=== PATIENT | male | born 1945 | race Caucasian/White ===

== ENCOUNTER 2017-10-09 10:43 | Inpatient (IN) | payer MEDICARE ==
[2017-10-09] VITALS (14 sets, daily range): BP systolic 101–124; BP diastolic 50–80
[~2017-10-09] VITALS: Ht 188 cm; Wt 65.2 kg
[~2017-10-09 10:43] MED LIST: AMIO200T57 PO; ASPI-612 PO; ATOR10TA87 PO; CLOP75TA35 PO; FLAX100031 PO; LISI-222 PO; METO50TA16 PO; MULT-785 PO; OMEG1CAP13 PO; SYN0.075T PO
[2017-10-09 11:25] LABS: BASOPHILS % (AUTO) 0.2 % (0-1); EOSINOPHILS # (AUTO) 0.2 X10'3 (0-0.9); EOSINOPHILS % (AUTO) 0.9 % (0-6); HEMATOCRIT 30.2 % (42.0-52.0); HEMOGLOBIN 10.4 g/dl (14.0-17.9); LYMPHOCYTES # (AUTO) 2.2 X10'3 (1.1-4.8); LYMPHOCYTES % (AUTO) 12.4 % (21-51); MEAN CORPUSCULAR HEMOGLOBIN 32.3 PG (27.0-31.0); MEAN CORPUSCULAR HGB CONC 34.4 % (33.0-36.5); MEAN CORPUSCULAR VOLUME 93.9 FL (78-98); MEAN PLATELET VOLUME 7.8 FL (7.4-10.4); MONOCYTES # (AUTO) 1.6 X10'3 (0-0.9); MONOCYTES % (AUTO) 9.2 % (2-12); NEUTROPHILS # (AUTO) 13.7 X10'3 (1.8-7.7); NEUTROPHILS % (AUTO) 77.3 % (42-75); PLATELET COUNT 431 X10'3 (140-440); RED BLOOD COUNT 3.21 X10'6 (4.70-6.10); RED CELL DISTRIBUTION WIDTH 14.2 % (11.5-14.5); WHITE BLOOD COUNT 17.7 X10'3 (4.5-11.0)
[2017-10-09 11:36] LABS: INR 1.1 INR; PARTIAL THROMBOPLASTIN TIME 35 SECONDS (22-32); PROTHROMBIN TIME 11.1 SECONDS (9.0-12.0)
[2017-10-09 11:41] LABS: ALANINE AMINOTRANSFERASE 36 U/L (12-78); ALBUMIN 2.7 G/DL (3.4-5.0); ALBUMIN/GLOBULIN RATIO 0.5 (1.1-1.5); ALKALINE PHOSPHATASE 83 IU/L (46-116); ANION GAP 12 (8-16); ASPARTATE AMINO TRANSFERASE 17 U/L (10-37); BILIRUBIN,TOTAL 0.6 MG/DL (0.1-1.0); BLOOD UREA NITROGEN 12 MG/DL (7-18); BUN/CREATININE RATIO 11.8 (5.4-32.0); CHLORIDE 99 MMOL/L (99-107); CREATININE 1.02 MG/DL (0.60-1.10); GLUCOSE 110 MG/DL (70-104); POTASSIUM 3.8 MMOL/L (3.5-5.1); SODIUM 136 MMOL/L (135-145); TOTAL CARBON DIOXIDE 25.2 MMOL/L (24-32); TOTAL PROTEIN 8.1 G/DL (6.4-8.2); eGFR 72 ML/MIN
[2017-10-09] MEDS ORDERED: piperacillin/tazo 3.375gm/50ml 50 ML IV SCH (12:18)
[2017-10-09] MEDS ORDERED: vancomycin/NS 1 GM ADD-VANTAGE 250 ML X 1 DOSE IV ONE (12:20)
[2017-10-09] MEDS ORDERED: piperacillin/tazo 3.375gm/50ml 50 ML IV ONE ×2 (12:46→16:00)
[2017-10-09] MEDS ORDERED: ringers solution, lacted 1,000 ML IV SCH ×2 (12:52→12:55)
[2017-10-09] MEDS ORDERED: hydrALAZINE 20mg/ml inj. IV PRN (12:55)
[2017-10-09] MEDS ORDERED: labetalol 5mg/ml 20ml inj. IV PRN (12:55)
[2017-10-09] MEDS ORDERED: famotidine 20mg tablet PO ONE (12:55)
[2017-10-09] MEDS ORDERED: morphine 2 MG/ML inj. syringe IV PRN ×2 (12:55)
[2017-10-09] MEDS ORDERED: fentaNYL/PF 50MCG/1 ML 2ML syringe IV PRN ×2 (12:55)
[2017-10-09] MEDS ORDERED: ondansetron/PF 4mg/2ml inj IV PRN ×2 (12:55→14:15)
[2017-10-09] MEDS ORDERED: LISI-604 PO (13:06)
[2017-10-09] MEDS ORDERED: dexamethasone sod phosphate 4mg/ml inj. ONE (13:15)
[2017-10-09] MEDS ORDERED: fentaNYL/PF 50MCG/1 ML 2ML syringe ONE (13:15)
[2017-10-09] MEDS ORDERED: LIDOcaine 2% (20mg/ml) 5ml vial ONE (13:15)
[2017-10-09] MEDS ORDERED: midazolam 2 mg/2 ml injection ONE (13:15)
[2017-10-09] MEDS ORDERED: ceFAZolin 1000mg inj ONE (13:16)
[2017-10-09] MEDS ORDERED: ondansetron/PF 4mg/2ml inj ONE (13:16)
[2017-10-09] MEDS ORDERED: propofol inj 20 ML IV ONE (13:16)
[2017-10-09] MEDS ORDERED: ePHEDrine 50MG/ML INJ. ONE (13:40)
[2017-10-09] MEDS ORDERED: naloxone 0.4 mg/ml inj IV PRN (14:15)
[2017-10-09] MEDS ORDERED: HYDROcodone/acetaminophen 5mg/325mg tablet PO PRN (14:15)
[2017-10-09] MEDS ORDERED: CADD PCA waste documentation MC PRN (14:15)
[2017-10-09] MEDS: HYDROmorphone/NS 1 mg/ml CADD 50 ML IV SCH ×6 (15:02→23:00)
[2017-10-09] MEDS: aspirin 81mg tablet.DR PO SCH (20:00)
[2017-10-09] MEDS: metoprolol tartrate 50mg tablet PO SCH (20:50)
[2017-10-09] MEDS ORDERED: atorvastatin 10mg tablet PO SCH (21:00)
[2017-10-10] VITALS: BP 98/68
[2017-10-10] MEDS: HYDROmorphone/NS 1 mg/ml CADD 50 ML IV SCH ×8 (01:00→14:56)
[2017-10-10] MEDS: vancomycin/NS 1 GM ADD-VANTAGE 250 ML IV SCH ×2 (02:08→07:43)
[2017-10-10 04:00] VITALS: BP 114/68
[2017-10-10 05:31] LABS: BASOPHILS % (AUTO) 0.1 % (0-1); EOSINOPHILS # (AUTO) 0.3 X10'3 (0-0.9); HEMATOCRIT 26.2 % (42.0-52.0); HEMOGLOBIN 8.9 g/dl (14.0-17.9); LYMPHOCYTES # (AUTO) 1.3 X10'3 (1.1-4.8); LYMPHOCYTES % (AUTO) 9.5 % (21-51); MEAN CORPUSCULAR HEMOGLOBIN 31.8 PG (27.0-31.0); MEAN CORPUSCULAR VOLUME 93.4 FL (78-98); MEAN PLATELET VOLUME 7.9 FL (7.4-10.4); MONOCYTES # (AUTO) 0.9 X10'3 (0-0.9); MONOCYTES % (AUTO) 6.3 % (2-12); NEUTROPHILS # (AUTO) 11.6 X10'3 (1.8-7.7); NEUTROPHILS % (AUTO) 82.1 % (42-75); PLATELET COUNT 395 X10'3 (140-440); RED BLOOD COUNT 2.81 X10'6 (4.70-6.10); RED CELL DISTRIBUTION WIDTH 13.7 % (11.5-14.5); WHITE BLOOD COUNT 14.1 X10'3 (4.5-11.0)
[2017-10-10 06:05] LABS: ALANINE AMINOTRANSFERASE 29 U/L (12-78); ALBUMIN 2.1 G/DL (3.4-5.0); ALBUMIN/GLOBULIN RATIO 0.5 (1.1-1.5); ALKALINE PHOSPHATASE 71 IU/L (46-116); ANION GAP 12 (8-16); ASPARTATE AMINO TRANSFERASE 15 U/L (10-37); BILIRUBIN,TOTAL 0.4 MG/DL (0.1-1.0); BLOOD UREA NITROGEN 12 MG/DL (7-18); BUN/CREATININE RATIO 18.2 (5.4-32.0); CALCIUM 8.3 MG/DL (8.5-10.1); CHLORIDE 103 MMOL/L (99-107); CREATININE 0.66 MG/DL (0.60-1.10); GLUCOSE 130 MG/DL (70-104); POTASSIUM 4.3 MMOL/L (3.5-5.1); SODIUM 139 MMOL/L (135-145); TOTAL CARBON DIOXIDE 24.1 MMOL/L (24-32); TOTAL PROTEIN 6.7 G/DL (6.4-8.2); eGFR > 90 ML/MIN
[2017-10-10 07:00] VITALS: BP 114/71
[2017-10-10] MEDS: metoprolol tartrate 50mg tablet PO SCH (07:41)
[2017-10-10] MEDS: aspirin 81mg tablet.DR PO SCH (07:41)
[2017-10-10] MEDS ORDERED: multivitamins, therapeutics tablet PO SCH (08:00)
[2017-10-10] MEDS ORDERED: enoxaparin 40mg/0.4ml syringe SQ SCH (08:00)
[2017-10-10] MEDS ORDERED: amiodarone 100mg tablet PO SCH (08:00)
[2017-10-10] MEDS ORDERED: non-formulary drug (Flaxseed Oil (Flax Seed Oil) 1,000 MG) PO SCH (08:00)
[2017-10-10] MEDS ORDERED: levoTHYROXINE 75mcg tablet PO SCH (08:00)
[2017-10-10] MEDS ORDERED: lisinopril 5mg tablet PO SCH (08:00)
[2017-10-10] MEDS ORDERED: non-formulary drug (Docosahexanoic Acid/Epa (Fish Oil 1,000 Mg Softgel) 1 EACH) PO SCH (08:00)
[2017-10-10] MEDS ORDERED: clopidogrel 75mg tablet PO SCH (08:00)
[2017-10-10] MEDS ORDERED: piperacillin/tazo 3.375gm/50ml 50 ML IV SCH (14:00)
[2017-10-10] MEDS ORDERED: METR500T4 PO (16:00)
[2017-10-10] MEDS ORDERED: CIPR-230 PO (16:00)
[2017-10-10] MEDS ORDERED: lactobacillus rhamnosus 10,000 MMU CELLS/CAPSULE PO SCH (20:00)
== END 2017-10-10 17:08 | disposition home or self-care (01) | DRG 856 ==
LOC: ER 10:44 → ED HOLD 14:11 → SUR 3N 15:30
PROVIDERS: ADMIT Surgery; ATTEND Internal Medicine
PROC: 0J980ZZ Drainage of Abdomen Subcutaneous Tissue and Fascia, Open Approach (ICD-10-PCS; principal; 2017-10-09 13:19)
DX: T81.4XXA Infection following a procedure, initial encounter (principal); A41.9 Sepsis, unspecified organism; L02.211 Cutaneous abscess of abdominal wall; D64.9 Anemia, unspecified; E78.5 Hyperlipidemia, unspecified; Y83.8 Other surgical procedures as the cause of abnormal reaction of the patient, or of later complication, without mention of misadventure at the time of the procedure; I10 Essential (primary) hypertension; I25.10 Atherosclerotic heart disease of native coronary artery without angina pectoris; Z79.899 Other long term (current) drug therapy; Z79.82 Long term (current) use of aspirin; Y92.89 Other specified places as the place of occurrence of the external cause
CPT/HCPCS: 36415; 71045; 80053; 83605; 84145; 85025; 85610; 85730; 86885; 86900; 86901; 87040; 87070; 87077; 87186; 93005; 99285; A6253; A6255; A6446; A6449; A7000; J0690; J1100; J1170; J2001; J2250; J2405; J2543; J2704; J3010; J3370; J7120

== ENCOUNTER 2024-05-27 10:28 | Outpatient (CLI) | payer MEDICARE ==
[~2024-05-27 10:28] MED LIST changes: +AMI200T PO; -AMIO200T57 PO; +CLOP75TA34 PO; -CLOP75TA35 PO; -LISI-222 PO; +LISI5TAB22 PO; +OMEG-5 PO; -OMEG1CAP13 PO
== END 2024-05-27 23:59 | disposition home or self-care (01) ==
LOC: RAD 10:28
PROVIDERS: ATTEND Student in an Organized Health Care Education/Training Program
DX: Z12.2 Encounter for screening for malignant neoplasm of respiratory organs (principal); I25.10 Atherosclerotic heart disease of native coronary artery without angina pectoris; J43.9 Emphysema, unspecified; J98.4 Other disorders of lung; F17.210 Nicotine dependence, cigarettes, uncomplicated
CPT/HCPCS: 71271